=== PATIENT | female | born 1975 | race Caucasian/White ===

== ENCOUNTER 2022-07-02 12:06 | Emergency (ER) | payer SELFPAY ==
[2022-07-02 12:15] VITALS: BP 132/96; PULSE 84; RESP 15; TEMP 36.8; O2SAT 100
--- NOTE | 2022-07-02 12:22 | ED.GENADUL_ITS ---
Discharge Plan Discharge Details Chief Complaint: RespSymp Primary Care Provider: None,None ED Provider: Zenobia Ugarte Home Meds and New Rx's Prescriptions: No Action No Known Home Meds Medical Decision Making [id number] --just prior to my going to evaluate patient due to high volume and acuity in the ED, it was reported to me that patient left without being seen. It was reported to me that she refused the EKG as she stated she does not have insurance and could not afford additional testing. Her fluvid was negative. Her chest x-ray was negative. Medical Records Medical records reviewed: Yes I reviewed the patient's medical records. HPI General Date/Time Provider Initiated Documentation: 07/02/22 12:20 . Related Data Home Medications Medication Instructions Recorded Confirmed Unknown [No Known Home Meds] 07/02/22 07/02/22 General Stated Complaint: RespSymp THUY: 4 PFSH Social History Smoking/Tobacco Use Status: Current every day Tobacco Type: cigarettes Smoking risk assessment performed?: Yes Alcohol Intake: never Drug use: Daily Substance use type: marijuana Do you feel safe at home: Yes Do you feel safe in your relationship?: Yes Course Vital Signs Vital signs: Vital Signs Temperature 98.2 F 07/02/22 12:15 Pulse 84 07/02/22 12:15 Respiratory Rate 15 07/02/22 12:15 Blood Pressure 132/96 H 07/02/22 12:15 Pulse Oximetry 100 07/02/22 12:15 Temperature 98.2 F 07/02/22 12:15 Temperature Source Temporal Artery Scan 07/02/22 12:15 Pulse 84 07/02/22 12:15 Respiratory Rate 15 07/02/22 12:15 Respiratory Effort Normal 07/02/22 12:19 Blood Pressure 132/96 H 07/02/22 12:15 Blood Pressure Position Sitting 07/02/22 12:15 Pulse Oximetry 100 07/02/22 12:15 Oxygen Delivery Method Room Air 07/02/22 12:15 Oxygen Flow Rate 0 07/02/22 12:15 Pain Level 8 07/02/22 12:15
--- NOTE | 2022-07-02 13:40 | DI.RAD_ITS ---
Exam(s) XR CHEST 2V PA LATERAL EXAM: XR CHEST 2V PA LATERAL CLINICAL HISTORY: cough, r/o pneumonia. TECHNIQUE: 2D digital imaging was performed. COMPARISON: No exams were available for comparison FINDINGS: 2 views: Heart size is normal. The mediastinum is not widened. Lungs are clear. No infiltrates nor pleural effusions. IMPRESSION: No acute pulmonary findings. DATA REPOSITORY: RADIATION DOSE DELIVERED:
[2022-07-02 14:14] LABS: COVID-19 PCR Negative (Negative); Influenza A PCR Negative (Negative); Influenza B PCR Negative (Negative); RSV PCR Negative (Negative)
[2022-07-02 14:15] LABS: Source Nasopharynx
--- NOTE | 2022-07-02 14:54 | NUR.NOTE ---
Nursing Note: Pt left without being seen by the provider
== END 2022-07-02 14:59 | disposition left against medical advice (07) ==
LOC: ER 12:39
PROVIDERS: Emergency Provider Physician Assistant
DX: Z53.21 Procedure and treatment not carried out due to patient leaving prior to being seen by health care provider (principal); R05.9 Cough, unspecified; J02.9 Acute pharyngitis, unspecified; R42 Dizziness and giddiness
CPT/HCPCS: 81025; 87637; 99283; 71046